=== PATIENT | female | born 1985 | race Caucasian/White ===

== ENCOUNTER 2017-04-05 11:19 | Emergency (ER) | payer BC ==
--- NOTE | 2017-04-05 15:36 | ED CLINICAL REPORT ---
Clinical Report - Physicians/Mid Levels [facility] [address] [place] [address] 04/05/2017 11:23 Patient: MARY COTTER Time Seen: 11:58. Arrived- By private vehicle. Historian- patient. HISTORY OF PRESENT ILLNESS Chief Complaint: VOMITING. This started about 2 days ago and is still present. No recent travel. She has had nausea, vomiting, diarrhea and mild, crampy abdominal pain. The pain is described as located in the lower abdomen. No black stools, bloody stools, constipation, flank pain or history of possible bad food exposure. No known contact with a sick individual. Has not recently been camping or on antibiotics. The illness is described as moderate. Similar symptoms previously: Occasionally. Recent medical care: The patient was seen recently at another facility. ( H and saw her doctor last week after not having a period for a few months and found that she was . Patient denies any vaginal bleeding or discharge. No focused pain in her pelvic or abdominal area. Her last menstrual period was in early December, the patient states she does not believe she is that far along.). REVIEW OF SYSTEMS No fever, muscle aches, difficulty with urination, dark urine or headache. No dizziness, sore throat, cough, chest pain or difficulty breathing. No excessive urination, skin rash, jaundice, back pain or fainting episodes. No blurred vision. All systems otherwise negative, except as recorded above. PAST HISTORY Problems: . Hypertension. Additional Surgeries: section. Cholecystectomy. Gastric bypass. Medications: Labetolol 100 mg BID. Allergies: No Known Drug Allergy. SOCIAL HISTORY Smoker- current status unknown. No alcohol use or drug use. PHYSICAL EXAM Appearance: Alert. Oriented X3. No acute distress. Eyes: Pupils equal, round and reactive to light. Eyes normal inspection. ENT: Nose normal. Neck: Normal inspection. CVS: Normal heart rate and rhythm. Heart sounds normal. Pulses normal. Respiratory: No respiratory distress. Breath sounds normal. Abdomen: Soft. Mild tenderness in the lower abdomen. No guarding or rebound tenderness. Obese. Back: Normal inspection. Skin: Skin warm and dry. Normal skin color. No rash. Normal skin turgor. Extremities: Extremities exhibit normal ROM. No lower extremity edema. Neuro: No motor deficit. No sensory deficit. (patient is grossly oriented, and is appropriate.). LABS, X-RAYS, AND EKG Pelvic Sonogram: Adnexa normal. No free fluid. No intrauterine . no evidence of extrauterine is noted either. Study type: bedside. The study was independently viewed by me, interpreted by the radiologist and contemporaneously by me and discussed with the radiologist. Prior studies were not available for comparison. Laboratory Tests: UA-Culture if indicated: (AWA: 04/05/2017 11:30) ( MsgRcvd 04/05/2017 12:04) Final results Test Result Flag Units (Reference) URINE COLOR YELLOW URINE APPEARANCE SL CLOUDY URINE GLUCOSE NEGATIVE (NEGATIVE) URINE BILIRUBIN NEGATIVE (NEGATIVE) URINE KETONE NEGATIVE (NEGATIVE) URINE SPECIFIC GRAVITY <= 1.005 L (1.010-1.030) URINE PH 6.0 (5.0-8.0) URINE PROTEIN NEGATIVE (NEGATIVE) URINE UROBILINOGEN 2.0 EU/dL (0.2-1.0) The urobilinogen reagent area may react with interferingsubstances known to react with Khloe's reagent such asp-aminosalicylic acid and sulfonamides. Atypical colorreactions may be obtained in the presence of highconcentrations of p-aminobenzoic acid. The absence ofurobilinogen cannot be determined with this test. URINE NITRITE NEGATIVE (NEGATIVE) URINE BLOOD NEGATIVE (NEGATIVE) URINE LEUK ESTERASE NEGATIVE (NEGATIVE) URINE RBC RARE rbc/hpf (0-1) URINE WBC 1-3 wbc/hpf (0-1) URINE EPITHELIAL CELLS 5-10 EPI/hpf (0-5) URINE BACTERIA FEW (1+) (NONE SEEN) URINE COMMENT CULT NOT INDICATED URINE CULTURES ARE SET-UP BASED ON THE FOLLOWING CRITERIA:POSITIVE NITRITEPOSITIVE LEUKOCYTE ESTERASEGREATER THAN 10 WHITE BLOOD CELLSMODERATE (2+) OR GREATER BACTERIA CBC w Diff: (AWA: 04/05/2017 12:15) ( MsgRcvd 04/05/2017 12:25) Final results Test Result Flag Units (Reference) WHITE BLOOD COUNT 4.7 K/uL (4.5-11.5) RED BLOOD COUNT 4.23 M/uL (4.00-5.20) HEMOGLOBIN 11.8 L gm/dL (12.0-16.0) HEMATOCRIT 35.1 L % (36.0-46.0) MEAN CELL VOLUME 83 fL (80-100) MEAN CORPUSCULAR HGB 28 pg (26-34) MEAN CORPUSCULAR HGB CONC 34 g/dL (31-37) RED CELL DISTRIBUTION WIDTH 15.8 H % (11.6-14.8) PLATELET COUNT 206 K/uL (150-400) NEUTROPHIL % 72.5 % (50-75) LYMPH % 17.4 L % (25-40) MONO % 8.4 % (3-14) EOSINOPHIL % 1.5 % (0-4) BASOPHIL % 0.2 % (0-2) CMP: (AWA: 04/05/2017 12:15) ( MsgRcvd 04/05/2017 13:26) Final results Test Result Flag Units (Reference) GLUCOSE 93 mg/dL (70-110) BUN 3 L mg/dL (7-18) CREATININE 0.4 L mg/dL (0.6-1.3) Estimated GFR >60 mL/min Estimated GFR- >60 mL/min Note: Persistent reduction over 3 months in eGFR<60 mL/min/1.73 m2 defines CKD. Patients with eGFR values>=60 mL/min/1.73 m2 may also have CKD if evidence ofpersistent proteinuria. Additional information may be foundat [email or web address]. SODIUM 140 mmol/L (136-145) POTASSIUM 4.4 mmol/L (3.5-5.1) Slightly hemolyzed specimen CHLORIDE 105 mmol/L (98-107) CARBON DIOXIDE 21 mmol/L (21-32) CALCIUM 7.7 L mg/dL (8.5-10.1) TOTAL PROTEIN 6.6 g/dL (6.4-8.2) ALBUMIN 3.4 g/dL (3.3-5.0) BILIRUBIN, TOTAL 0.4 mg/dL (0.0-1.0) ALKALINE PHOSPHATASE 56 U/L (46-116) AST (SGOT) 42 H U/L (15-37) Slightly hemolyzed specimen ALT (SGPT) 47 U/L (12-78) BETA HCG, QUANTITATIVE 2991 mIU/mL REFERENCE RANGE:Adult Males: <2 mIU/mLNon- Females: <6 mIU/mL Females:Approximate Approximate hCGGestational Age Range (mIU/mL) 0-1 week 0-501-2 weeks 40-3002-3 weeks 100-34900-1 weeks 500-23035-4 months 5,000-200,0002-3 months 10,000-100,0002nd trimester 3,000-50,0003rd trimester 1,000-50,000 . Pulse Oximetry: 04/05/2017 11:40 O2 saturation: 100%. (FIO2 - room air). Interpretation: normal. PROGRESS AND PROCEDURES Course of Care: Patient is treated symptomatically with IV fluids and Zofran. Ultrasound showed no findings of in the uterus, but no evidence of ectopic, either. At this point in time, the patient will need to have repeat quantitative hCGs performed, and will likely need another ultrasound in the next several weeks. The patient has been instructed regarding this. No emergent condition identified. Patient and family counseled in person regarding the patient's stable condition, test results, diagnosis and need for follow-up. Concerns were addressed. Old medical records reviewed. Disposition: Discharged. Condition: stable. CLINICAL IMPRESSION First trimester ; positive test in emergency department. Acute viral gastroenteritis. INSTRUCTIONS Do not work for three days. Drink plenty of fluids. (Your labs look good. Your ultrasound does not show a fetus in the uterus at this time. This may be because it is too early in the for the fetus to show up; however it could also mean that the is not developing properly, or is in the wrong place. At this time there is no evidence of an ectopic , but you will need to follow up for repeat labs and a repeat ultrasound within the next week to determine what is going on.). Warnings: Further evaluation is necessary. It is very important to follow up with a physician. GENERAL WARNINGS: Return or contact your physician immediately if your condition worsens or changes unexpectedly, if not improving as expected, or if other problems arise. Your Current Medications: CONTINUE TAKING THE FOLLOWING MEDICATIONS: Labetolol 100 mg BID*. Prescription Medications: Zofran (orally disintegrating tablets) 4 mg: take 1-2 orally every 6 hours as needed for nausea. Dispense twenty (20). No refill. Substitution is permissible. Understanding of the discharge instructions verbalized by patient and family. Follow-up with: Pepe Fernandez MD, Obstetrics/Gynecology, , [facility], [address] [place] [address] Follow up. Call for the next available appointment. Reason for referral: Follow up ER visit for new diagnosis of , no fetus seen on ultrasound. (Electronically signed by Mary Jo Ruiz MD 04/07/2017 4:34)
--- NOTE | 2017-04-05 15:36 | ED CLINICAL REPORT ---
Clinical Report - Physicians/Mid Levels [facility] [address] [place] [address] 04/05/2017 11:23 Patient: MARY COTTER Time Seen: 11:58. Arrived- By private vehicle. Historian- patient. HISTORY OF PRESENT ILLNESS Chief Complaint: VOMITING. This started about 2 days ago and is still present. No recent travel. She has had nausea, vomiting, diarrhea and mild, crampy abdominal pain. The pain is described as located in the lower abdomen. No black stools, bloody stools, constipation, flank pain or history of possible bad food exposure. No known contact with a sick individual. Has not recently been camping or on antibiotics. The illness is described as moderate. Similar symptoms previously: Occasionally. Recent medical care: The patient was seen recently at another facility. ( H and saw her doctor last week after not having a period for a few months and found that she was . Patient denies any vaginal bleeding or discharge. No focused pain in her pelvic or abdominal area. Her last menstrual period was in early December, the patient states she does not believe she is that far along.). REVIEW OF SYSTEMS No fever, muscle aches, difficulty with urination, dark urine or headache. No dizziness, sore throat, cough, chest pain or difficulty breathing. No excessive urination, skin rash, jaundice, back pain or fainting episodes. No blurred vision. All systems otherwise negative, except as recorded above. PAST HISTORY Problems: . Hypertension. Additional Surgeries: section. Cholecystectomy. Gastric bypass. Medications: Labetolol 100 mg BID. Allergies: No Known Drug Allergy. SOCIAL HISTORY Smoker- current status unknown. No alcohol use or drug use. PHYSICAL EXAM Appearance: Alert. Oriented X3. No acute distress. Eyes: Pupils equal, round and reactive to light. Eyes normal inspection. ENT: Nose normal. Neck: Normal inspection. CVS: Normal heart rate and rhythm. Heart sounds normal. Pulses normal. Respiratory: No respiratory distress. Breath sounds normal. Abdomen: Soft. Mild tenderness in the lower abdomen. No guarding or rebound tenderness. Obese. Back: Normal inspection. Skin: Skin warm and dry. Normal skin color. No rash. Normal skin turgor. Extremities: Extremities exhibit normal ROM. No lower extremity edema. Neuro: No motor deficit. No sensory deficit. (patient is grossly oriented, and is appropriate.). LABS, X-RAYS, AND EKG Pelvic Sonogram: Adnexa normal. No free fluid. No intrauterine . no evidence of extrauterine is noted either. Study type: bedside. The study was independently viewed by me, interpreted by the radiologist and contemporaneously by me and discussed with the radiologist. Prior studies were not available for comparison. Laboratory Tests: UA-Culture if indicated: (WAA: 04/05/2017 11:30) ( MsgRcvd 04/05/2017 12:04) Final results Test Result Flag Units (Reference) URINE COLOR YELLOW URINE APPEARANCE SL CLOUDY URINE GLUCOSE NEGATIVE (NEGATIVE) URINE BILIRUBIN NEGATIVE (NEGATIVE) URINE KETONE NEGATIVE (NEGATIVE) URINE SPECIFIC GRAVITY <= 1.005 L (1.010-1.030) URINE PH 6.0 (5.0-8.0) URINE PROTEIN NEGATIVE (NEGATIVE) URINE UROBILINOGEN 2.0 EU/dL (0.2-1.0) The urobilinogen reagent area may react with interferingsubstances known to react with Khloe's reagent such asp-aminosalicylic acid and sulfonamides. Atypical colorreactions may be obtained in the presence of highconcentrations of p-aminobenzoic acid. The absence ofurobilinogen cannot be determined with this test. URINE NITRITE NEGATIVE (NEGATIVE) URINE BLOOD NEGATIVE (NEGATIVE) URINE LEUK ESTERASE NEGATIVE (NEGATIVE) URINE RBC RARE rbc/hpf (0-1) URINE WBC 1-3 wbc/hpf (0-1) URINE EPITHELIAL CELLS 5-10 EPI/hpf (0-5) URINE BACTERIA FEW (1+) (NONE SEEN) URINE COMMENT CULT NOT INDICATED URINE CULTURES ARE SET-UP BASED ON THE FOLLOWING CRITERIA:POSITIVE NITRITEPOSITIVE LEUKOCYTE ESTERASEGREATER THAN 10 WHITE BLOOD CELLSMODERATE (2+) OR GREATER BACTERIA CBC w Diff: (AWA: 04/05/2017 12:15) ( MsgRcvd 04/05/2017 12:25) Final results Test Result Flag Units (Reference) WHITE BLOOD COUNT 4.7 K/uL (4.5-11.5) RED BLOOD COUNT 4.23 M/uL (4.00-5.20) HEMOGLOBIN 11.8 L gm/dL (12.0-16.0) HEMATOCRIT 35.1 L % (36.0-46.0) MEAN CELL VOLUME 83 fL (80-100) MEAN CORPUSCULAR HGB 28 pg (26-34) MEAN CORPUSCULAR HGB CONC 34 g/dL (31-37) RED CELL DISTRIBUTION WIDTH 15.8 H % (11.6-14.8) PLATELET COUNT 206 K/uL (150-400) NEUTROPHIL % 72.5 % (50-75) LYMPH % 17.4 L % (25-40) MONO % 8.4 % (3-14) EOSINOPHIL % 1.5 % (0-4) BASOPHIL % 0.2 % (0-2) CMP: (AWA: 04/05/2017 12:15) ( MsgRcvd 04/05/2017 13:26) Final results Test Result Flag Units (Reference) GLUCOSE 93 mg/dL (70-110) BUN 3 L mg/dL (7-18) CREATININE 0.4 L mg/dL (0.6-1.3) Estimated GFR >60 mL/min Estimated GFR- >60 mL/min Note: Persistent reduction over 3 months in eGFR<60 mL/min/1.73 m2 defines CKD. Patients with eGFR values>=60 mL/min/1.73 m2 may also have CKD if evidence ofpersistent proteinuria. Additional information may be foundat [email or web address]. SODIUM 140 mmol/L (136-145) POTASSIUM 4.4 mmol/L (3.5-5.1) Slightly hemolyzed specimen CHLORIDE 105 mmol/L (98-107) CARBON DIOXIDE 21 mmol/L (21-32) CALCIUM 7.7 L mg/dL (8.5-10.1) TOTAL PROTEIN 6.6 g/dL (6.4-8.2) ALBUMIN 3.4 g/dL (3.3-5.0) BILIRUBIN, TOTAL 0.4 mg/dL (0.0-1.0) ALKALINE PHOSPHATASE 56 U/L (46-116) AST (SGOT) 42 H U/L (15-37) Slightly hemolyzed specimen ALT (SGPT) 47 U/L (12-78) BETA HCG, QUANTITATIVE 2991 mIU/mL REFERENCE RANGE:Adult Males: <2 mIU/mLNon- Females: <6 mIU/mL Females:Approximate Approximate hCGGestational Age Range (mIU/mL) 0-1 week 0-501-2 weeks 40-3002-3 weeks 100-64434-5 weeks 500-53131-9 months 5,000-200,0002-3 months 10,000-100,0002nd trimester 3,000-50,0003rd trimester 1,000-50,000 . Pulse Oximetry: 04/05/2017 11:40 O2 saturation: 100%. (FIO2 - room air). Interpretation: normal. PROGRESS AND PROCEDURES Course of Care: Patient is treated symptomatically with IV fluids and Zofran. Ultrasound showed no findings of in the uterus, but no evidence of ectopic, either. At this point in time, the patient will need to have repeat quantitative hCGs performed, and will likely need another ultrasound in the next several weeks. The patient has been instructed regarding this. No emergent condition identified. Patient and family counseled in person regarding the patient's stable condition, test results, diagnosis and need for follow-up. Concerns were addressed. Old medical records reviewed. Disposition: Discharged. Condition: stable. CLINICAL IMPRESSION First trimester ; positive test in emergency department. Acute viral gastroenteritis. INSTRUCTIONS Do not work for three days. Drink plenty of fluids. (Your labs look good. Your ultrasound does not show a fetus in the uterus at this time. This may be because it is too early in the for the fetus to show up; however it could also mean that the is not developing properly, or is in the wrong place. At this time there is no evidence of an ectopic , but you will need to follow up for repeat labs and a repeat ultrasound within the next week to determine what is going on.). Warnings: Further evaluation is necessary. It is very important to follow up with a physician. GENERAL WARNINGS: Return or contact your physician immediately if your condition worsens or changes unexpectedly, if not improving as expected, or if other problems arise. Your Current Medications: CONTINUE TAKING THE FOLLOWING MEDICATIONS: Labetolol 100 mg BID*. Prescription Medications: Zofran (orally disintegrating tablets) 4 mg: take 1-2 orally every 6 hours as needed for nausea. Dispense twenty (20). No refill. Substitution is permissible. Understanding of the discharge instructions verbalized by patient and family. Follow-up with: Pepe Fernandez MD, Obstetrics/Gynecology, , [facility], [address] [place] [address] Follow up. Call for the next available appointment. Reason for referral: Follow up ER visit for new diagnosis of , no fetus seen on ultrasound. (Electronically signed by Mary Jo Ruiz MD 04/07/2017 4:34)
--- NOTE | 2017-04-05 15:37 | ED ORDER SUMMARY ---
..... Patient: MARY COTTER OrderSheet [facility] VisitID: [id number] [place] [address] 32y, F Registration Date/Time: 04/05/2017 ORDER SHEET Weight: 117.9 kg (stated) Allergies: No Known Drug Allergy GENERAL ORDERS: UA-Culture if indicated Urgent (11:48 04/05/2017 SStone R.N. per protocol) (Ack 12:00 Salomon) (12:46 JBoardley R.N.) CBC w Diff Urgent (11:48 04/05/2017 SStone R.N. per protocol) (Ack 12:00 Salomon) (12:46 JBoardley R.N.) CMP Urgent (11:48 04/05/2017 SStone R.N. per protocol) (Ack 12:00 Salomon) (12:46 JBoardley R.N.) Serum Quantitative Urgent (12:00 04/05/2017 Marisabel CARRILLO) (Ack 12:08 Salomon) (12:46 JBoardley R.N.) US OB 1st Trimester w Transvag () Urgent (13:45 04/05/2017 Marisabel CARRILLO) (Ack 13:48 Salomon) (15:29 IJurca ER Tech1) MEDICATION ORDERS: IV FLUIDS: IV Saline Lock (11:48 04/05/2017 SStone R.N. per protocol) (Ack 12:14 SStone R.N.) (12:47 SStone R.N.) IV NS : initial bolus 1000 mL (1000 mL/hr), then none - (NOW) (12:00 04/05/2017 Marisabel CARRILLO) (Ack 12:14 SStone R.N.) (12:47 SStone R.N.) Zofran IV 8 mg (NOW) (12:00 04/05/2017 Marisabel CARRILLO) (Ack 12:14 SStone R.N.) (12:48 SStone R.N.) Zofran IV 8 mg (NOW) (15:57 04/05/2017 Marisabel CARRILLO) ORDER SHEET NOTES: [Electronically signed by Lisa Marion R.N. (11:50 04/06/2017)] [Electronically signed by Mary Jo Ruiz MD (04:34 04/07/2017)] [Electronically locked/signed by Lisa Marion R.N. (11:50 04/06/2017)]
--- NOTE | 2017-04-05 15:37 | ED ORDER SUMMARY ---
..... Patient: MARY COTTER OrderSheet [facility] VisitID: [id number] [place] [address] 32y, F Registration Date/Time: 04/05/2017 ORDER SHEET Weight: 117.9 kg (stated) Allergies: No Known Drug Allergy GENERAL ORDERS: UA-Culture if indicated Urgent (11:48 04/05/2017 SStone R.N. per protocol) (Ack 12:00 Salomon) (12:46 JBoardley R.N.) CBC w Diff Urgent (11:48 04/05/2017 SStone R.N. per protocol) (Ack 12:00 Salomon) (12:46 JBoardley R.N.) CMP Urgent (11:48 04/05/2017 SStone R.N. per protocol) (Ack 12:00 Salomon) (12:46 JBoardley R.N.) Serum Quantitative Urgent (12:00 04/05/2017 Marisabel CARRILLO) (Ack 12:08 Salomon) (12:46 JBoardley R.N.) US OB 1st Trimester w Transvag () Urgent (13:45 04/05/2017 Marisabel CARRILLO) (Ack 13:48 Salomon) (15:29 IJurca ER Tech1) MEDICATION ORDERS: IV FLUIDS: IV Saline Lock (11:48 04/05/2017 SStone R.N. per protocol) (Ack 12:14 SStone R.N.) (12:47 SStone R.N.) IV NS : initial bolus 1000 mL (1000 mL/hr), then none - (NOW) (12:00 04/05/2017 Marisabel CARRILLO) (Ack 12:14 SStone R.N.) (12:47 SStone R.N.) Zofran IV 8 mg (NOW) (12:00 04/05/2017 Marisabel CARRILLO) (Ack 12:14 SStone R.N.) (12:48 SStone R.N.) Zofran IV 8 mg (NOW) (15:57 04/05/2017 Marisabel CARRILLO) ORDER SHEET NOTES: [Electronically signed by Lisa Marion R.N. (11:50 04/06/2017)] [Electronically signed by Mary Jo Ruiz MD (04:34 04/07/2017)] [Electronically locked/signed by Lisa Marion R.N. (11:50 04/06/2017)]
--- NOTE | 2017-04-05 15:37 | ED NURSING NOTES ---
Clinical Report - Nurses [facility] [place] [address] 04/05/2017 11:23 [id number] TRI[facility] Triage time 11:33. Acuity: LEVEL 3. Chief Complaint: ABDOMINAL PAIN, NAUSEA, VOMITING and DIARRHEA. --11:38 Lisa Marion R.N. 11:50 04/05/17. BP: 145/98. HR: 86. RR: 18. O2 saturation: 100%. Temp: 99 F. Pain level now: 02/08. --16:07 Jeff Silva, ER Tech1. Weight: 117.9 kg stated. Height/Length: 60 inches Per Patient. BMI: 50.8. --11:37 Lisa Marion R.N. Medications lebatolol 100 mg bid. --11:36 Lisa Marion R.N. Allergies No Known Drug Allergy. --11:35 Lisa Marion R.N. History Arrived by private vehicle. Historian: patient. Onset. (2 days ago). She has had nausea, vomiting, diarrhea and abdominal pain. ( chills). PAST MEDICAL HX: Last normal menstrual period- January 06 2017. Currently . SOCIAL HX: Light tobacco smoker (cigarette)- less than 1/2 a pack per day. No alcohol use or drug use. No recent travel. No infectious disease exposure. No known contact with a sick individual. --11:38 Lisa Marion R.N. PROBLEMS: Hypertension. --11:38 Lisa Marion R.N. ADDITIONAL SURGERIES: section. Cholecystectomy. Gastric bypass. --11:38 Lisa Marion R.N. Interventions To treatment room. --11:38 Lisa Marion R.N. PHYSICAL ASSESSMENT Ambulatory to room. ( Assessment by Jeff Silva RN). GENERAL / NEURO / PSYCH: Alert. Oriented X 4. Appears in no acute distress. RESPIRATORY: Respirations not labored. Breath sounds within normal limits. GI / : Abdomen soft and nontender. Bowel sounds within normal limits. SKIN: Skin is warm and dry. --12:28 Jeff Silva, ER Tech1. NURSING PROGRESS NOTES 11:40 04/05/17. BP: 145/98 taken while sitting. HR: 86. RR: 18. O2 saturation: 100% on room air. Temp: 99.0 F. Pain level now: 02/08. --11:41 Jeff Silva, ER Tech1 11:53 04/05/2017 Site #1 started via IV in the right antecubital space with an 20g angiocath, with aseptic technique and good blood return; one attempt. Saline lock flushed with 10 mL saline. --11:53 Christiana Barrios R.N. 12:22 04/05/2017 Started bag #1 1000 mL IV Fluids IV NS (Saline); bolus of 1000 mL wide open via site #1 --12:47 Lisa Marion R.N. 12:22 04/05/2017 Zofran (Ondansetron HCl) IVP 8 mg given over 2 minute(s) via site #1. Allergies verified and confirmed 5 rights. IV patency established. IV site checked: no pain, redness, or swelling. IV flushed thoroughly pre- and post-medication administration. IVP given by RN. --12:48 Lisa Marion R.N. ( Report to annamaria roberts for lunch coverage. awaiting lab results resting quietly, call light in reach, no needs at this time.). --12:48 Lisa Marion R.N. 12:59 04/05/17. --12:59 Vin Greene R.N. 12:59 04/05/17. BP: 116/65. HR: 87. RR: 16. O2 saturation: 100% on room air. --12:59 Vin Greene R.N. 12:59 04/05/17. Patient and family informed about reason for wait and about plan of care. --12:59 Vin Greene R.N. 13:58 04/05/17. BP: 131/76. HR: 92. RR: 18. O2 saturation: 100%. Temp: 98.9 F. Pain level now 03/11. --13:59 Jeff Silva ER Tech1 ( Informed Pt of next step in process; waiting for Ultrasound at this time. Gave Pt warm blanket; Pt resting.). --14:00 Jeff Silva ER Tech1 ( Gave Pt a snack (clovis crackers and cranberry juice) after getting approval from ED MD.). --14:05 Jeff Silva ER Tech1 ( US in room). --14:36 Lisa Marion R.N. 15:31 04/05/17. BP: 111/71. HR: 94. RR: 16. O2 saturation: 100%. Temp: 98.4 F. --15:32 Jeff Silva ER Tech1 ( Updated Pt on status. MD reviewing result of ultrasound. Pt resting with family in room.). --15:32 Jeff Silva ER Tech1. DISPOSITION / DISCHARGE Departure time: 1544. Condition at departure: unchanged and stable. No learning barriers present. Discharge instructions provided and reviewed with the patient. Reviewed medication(s) side effects information. Prescription(s) given to the patient. Reviewed referral to a primary care physician for followup. Reviewed need to stop smoking. The patient was discharged by the physician. She was discharged home and accompanied by validation scientist. She left the Emergency Department ambulatory and via private vehicle. Linoleum Floor Layer driving. --15:48 Jeff Silva ER Tech1 15:45 04/05/17. BP: 111/71. HR: 94. RR: 16. O2 saturation: 100%. Temp: 98.4 F. --15:48 Jeff Silva ER Tech1 15:43 04/05/2017 Site #1 removed upon discharge. Catheter intact. Bandage applied. --15:48 Jeff Silva ER Tech1 Departure time: 1604. ( Updated departure time. - Jeff Moore RN). --16:05 Jeff Silva ER Tech1. Locked/Released at 04/06/2017 11:50 by Lisa Marion R.N.
--- NOTE | 2017-04-05 15:37 | ED NURSING NOTES ---
Clinical Report - Nurses [facility] [place] [address] 04/05/2017 11:23 [id number] TRI[facility] Triage time 11:33. Acuity: LEVEL 3. Chief Complaint: ABDOMINAL PAIN, NAUSEA, VOMITING and DIARRHEA. --11:38 Lisa Marion R.N. 11:50 04/05/17. BP: 145/98. HR: 86. RR: 18. O2 saturation: 100%. Temp: 99 F. Pain level now: 02/08. --16:07 Jeff Silva, ER Tech1. Weight: 117.9 kg stated. Height/Length: 60 inches Per Patient. BMI: 50.8. --11:37 Lisa Marion R.N. Medications lebatolol 100 mg bid. --11:36 Lisa Marion R.N. Allergies No Known Drug Allergy. --11:35 Lisa Marion R.N. History Arrived by private vehicle. Historian: patient. Onset. (2 days ago). She has had nausea, vomiting, diarrhea and abdominal pain. ( chills). PAST MEDICAL HX: Last normal menstrual period- January 06 2017. Currently . SOCIAL HX: Light tobacco smoker (cigarette)- less than 1/2 a pack per day. No alcohol use or drug use. No recent travel. No infectious disease exposure. No known contact with a sick individual. --11:38 Lisa Marion R.N. PROBLEMS: Hypertension. --11:38 Lisa Marion R.N. ADDITIONAL SURGERIES: section. Cholecystectomy. Gastric bypass. --11:38 Lisa Marion R.N. Interventions To treatment room. --11:38 Lisa Marion R.N. PHYSICAL ASSESSMENT Ambulatory to room. ( Assessment by Jeff Silva RN). GENERAL / NEURO / PSYCH: Alert. Oriented X 4. Appears in no acute distress. RESPIRATORY: Respirations not labored. Breath sounds within normal limits. GI / : Abdomen soft and nontender. Bowel sounds within normal limits. SKIN: Skin is warm and dry. --12:28 Jeff Silva, ER Tech1. NURSING PROGRESS NOTES 11:40 04/05/17. BP: 145/98 taken while sitting. HR: 86. RR: 18. O2 saturation: 100% on room air. Temp: 99.0 F. Pain level now: 02/08. --11:41 Jeff Silva, ER Tech1 11:53 04/05/2017 Site #1 started via IV in the right antecubital space with an 20g angiocath, with aseptic technique and good blood return; one attempt. Saline lock flushed with 10 mL saline. --11:53 Christiana Barrios R.N. 12:22 04/05/2017 Started bag #1 1000 mL IV Fluids IV NS (Saline); bolus of 1000 mL wide open via site #1 --12:47 Lisa Marion R.N. 12:22 04/05/2017 Zofran (Ondansetron HCl) IVP 8 mg given over 2 minute(s) via site #1. Allergies verified and confirmed 5 rights. IV patency established. IV site checked: no pain, redness, or swelling. IV flushed thoroughly pre- and post-medication administration. IVP given by RN. --12:48 Lisa Marion R.N. ( Report to annamaria roberts for lunch coverage. awaiting lab results resting quietly, call light in reach, no needs at this time.). --12:48 Lisa Marion R.N. 12:59 04/05/17. --12:59 Vin Greene R.N. 12:59 04/05/17. BP: 116/65. HR: 87. RR: 16. O2 saturation: 100% on room air. --12:59 Vin [place] R.N. 12:59 04/05/17. Patient and family informed about reason for wait and about plan of care. --12:59 Vin Greene R.N. 13:58 04/05/17. BP: 131/76. HR: 92. RR: 18. O2 saturation: 100%. Temp: 98.9 F. Pain level now 03/11. --13:59 Jeff Silva ER Tech1 ( Informed Pt of next step in process; waiting for Ultrasound at this time. Gave Pt warm blanket; Pt resting.). --14:00 Jeff Silva ER Tech1 ( Gave Pt a snack (clovis crackers and cranberry juice) after getting approval from ED MD.). --14:05 Jeff Silva ER Tech1 ( US in room). --14:36 Lisa Marion R.N. 15:31 04/05/17. BP: 111/71. HR: 94. RR: 16. O2 saturation: 100%. Temp: 98.4 F. --15:32 Jeff Silva ER Tech1 ( Updated Pt on status. MD reviewing result of ultrasound. Pt resting with family in room.). --15:32 Jeff Silva ER Tech1. DISPOSITION / DISCHARGE Departure time: 1544. Condition at departure: unchanged and stable. No learning barriers present. Discharge instructions provided and reviewed with the patient. Reviewed medication(s) side effects information. Prescription(s) given to the patient. Reviewed referral to a primary care physician for followup. Reviewed need to stop smoking. The patient was discharged by the physician. She was discharged home and accompanied by pinion sorter. She left the Emergency Department ambulatory and via private vehicle. Brickmason Helper driving. --15:48 Jeff Silva ER Tech1 15:45 04/05/17. BP: 111/71. HR: 94. RR: 16. O2 saturation: 100%. Temp: 98.4 F. --15:48 Jeff Silva ER Tech1 15:43 04/05/2017 Site #1 removed upon discharge. Catheter intact. Bandage applied. --15:48 Jeff Silva ER Tech1 Departure time: 1604. ( Updated departure time. - Jeff Moore RN). --16:05 Jeff Silva ER Tech1. Locked/Released at 04/06/2017 11:50 by Lisa Marion R.N.
--- NOTE | 2017-04-05 16:02 | DIAGNOSTIC IMAGING REPORT ---
PROCEDURE: US OB 1ST TRIMESTER W/TRANSVAG INDICATION: PAIN TECHNIQUE: Vidal scale, color, and spectral Doppler transabdominal and endovaginal sonographic images of the first trimester gravid uterus were obtained. COMPARISON: None. FINDINGS: TRANSABDOMINAL SCANS: Anteverted uterus. TRANSVAGINAL SCANS: The uterus measures 5.4 x 7.4 0.2 cm. Myometrium is unremarkable. Endometrium measures 13 mm with a small amount of fluid within the endometrium. No evidence of a gestational sac. Left ovary measures 4 x 2.7 x 1.9 cm and right ovary 4.2 x 2.6 x 2.1 cm. No adnexal mass or free fluid in the cul-de-sac. IMPRESSION: 1. No evidence of an intrauterine gestational sac, adnexal mass or free fluid. Recommend follow-up Beta hCG and ultrasound
--- NOTE | 2017-04-07 04:34 | ED MAR SUMMARY ---
..... Medication Administration Record [facility] [address] [place] [address] Patient: MARY COTTER Visit ID: [id number] 32y, F Weight: 117.9 kg Height/Length: 60 in BMI: 50.8 ALLERGIES: No Known Drug Allergy Start 12:04/05/2017 Lisa Marion R.N. Medication Administered: IV NS (SALINE), Dose: IV Fluids, Bolus: 1000 mL wide open, Dispensed: 1000 mL bag, Site: #1 right AC. Medication Ordered: IV NS : initial bolus 1000 mL (1000 mL/hr), then none - (NOW). Given 12:04/05/2017 Lisa Marion R.N. Medication Administered: ZOFRAN [IVP] (ONDANSETRON HCL), Dose: 8 mg IVP over 2 minute(s), Site: #1 right AC. Medication Ordered: Zofran IV 8 mg (NOW).
--- NOTE | 2017-04-07 04:34 | ED DISCHARGE INSTRUCTIONS ---
Patient: MARY COTTER General Instructions [facility] VisitID: [id number] [place] [address] 32y, F Registration Date/Time: 04/05/2017 First trimester ; positive test in emergency department. Acute viral gastroenteritis. INSTRUCTIONS Do not work for three days. Drink plenty of fluids. (Your labs look good. Your ultrasound does not show a fetus in the uterus at this time. This may be because it is too early in the for the fetus to show up; however it could also mean that the is not developing properly, or is in the wrong place. At this time there is no evidence of an ectopic , but you will need to follow up for repeat labs and a repeat ultrasound within the next week to determine what is going on.). Warnings: Further evaluation is necessary. It is very important to follow up with a physician. GENERAL WARNINGS: Return or contact your physician immediately if your condition worsens or changes unexpectedly, if not improving as expected, or if other problems arise. Your Current Medications: CONTINUE TAKING THE FOLLOWING MEDICATIONS: Labetolol 100 mg BID*. Prescription Medications: Zofran (orally disintegrating tablets) 4 mg: take 1-2 orally every 6 hours as needed for nausea. Dispense twenty (20). No refill. Substitution is permissible. Understanding of the discharge instructions verbalized by patient and family. Follow-up with: Pepe Fernandez MD, Obstetrics/Gynecology, , [facility], [address] [place] [address] Follow up. Call for the next available appointment. Reason for referral: Follow up ER visit for new diagnosis of , no fetus seen on ultrasound. ADDITIONAL INFORMATION Viral Gastroenteritis (6Yr-Adult) Gastroenteritis is another name for thestomach flu.It is most often caused by a virus that affects the stomach and intestinal tract. Symptoms include stomach cramping and fever, vomiting and/or diarrhea, and can last from 2 to 7 days. The danger from repeated vomiting or diarrhea is dehydration. This is the loss of too much water and minerals from the body. When this occurs, body fluids must be replaced. Antibiotics are not effective for this illness, but simple home treatment will be helpful. Home Care If symptoms are severe, rest at home for the next 24 hours. Avoid tobacco, caffeine, and alcohol use, which can worsen symptoms. Acetaminophen (Tylenol) or ibuprofen (Motrin, Advil) may be usedfor fever or pain unless another medication was prescribed. NOTE: If you have chronic liver or kidney disease or ever had a stomach ulcer or GI bleeding, talk with your doctor before using these medicines. Aspirin should never be used in anyone under 18 years of age who is ill with a fever. It may cause severe liver damage. If medicines for diarrhea or vomiting were prescribed, be sure they are takenonly as directed. If vomiting, drink small amounts of clear fluids (such as water, sports drinks, clear sodas) at frequent intervals to prevent dehydration. Start with 1 to 2 tablespoons every 10 minutes. Once vomiting stops, follow these guidelines: During The First 12 To 24 Hours follow the diet below: Beverages: Sport drinks like Gatorade, soft drinks without caffeine; mihaela channing, mineral water (plain or flavored), decaffeinated tea and coffee. Soups: Clear broth, consomm and bouillon Desserts: Plain gelatin (Jell-O), Popsicles and fruit juice bars. During The Next 24 Hours you may add the following to the above: Hot cereal, plain toast, bread, rolls, crackers Plain noodles, rice, mashed potatoes, chicken noodle or rice soup Unsweetened canned fruit (avoid pineapple), bananas Limit fat intake to less than 15 grams per day by avoiding margarine, butter, oils, mayonnaise, sauces, gravies, fried foods, peanut butter, meat, poultry, and fish. Limit fiber; avoid raw or cooked vegetables, fresh fruits (except bananas), and bran cereals. Limit caffeine and chocolate. Do not use spices or seasonings except salt. During The Next 24 Hours The patient can gradually resume a normal diet as symptoms lessen. Preventing Spread Hand washing with soap and water is the best way to prevent the spread of viruses. Caregivers should wash their hands before andafter touching the sick person. The sick person, as well as everyone in the family,should wash their hands after using the toilet and before meals. Clean the toilet after each use. People with diarrhea should not prepare food for others. If you are preparing your own foods, wash your hands before and after. Follow Up with your doctor as advised. Call your doctor if you are not improving over the next 2 to 3 days. If a stool (diarrhea) sample was taken, you may call in 2 days (or as directed) for the results. Get Prompt Medical Attention if any of the following occur: Increasing abdominal pain Continued vomiting (unable to keep liquids down) Frequent diarrhea (more than 5 times a day) Blood in vomit or stool (black or red color) Dark urine, reduced urine output, or extreme thirst Weakness, dizziness, fainting Drowsiness, confusion, stiff neck, or seizure Fever of 100.4F (38C) oral or higher, not better with fever medication New rash Your exam today shows that you are . During , it is normal to develop tender swollen breasts, frequent urination and mild vaginal discharge. During the first three months, nausea is common. Guidelines For A Healthy : To ensure that your baby is born healthy there are certain things that you can do: When you feel tired, you should REST. This is especially true in the later months of . Your body needs more FLUIDS than you may be used to: You should drink 8-10 glasses of juice, milk or water. Eat well-balanced MEALS at regular intervals to supply your body with enough protein. You can expect a total weight gain of about 30 pounds during the . Do not try to diet or lose weight while you are . Because of the extra nutritional needs during , take one VITAMIN daily. Do not take any other MEDICINE during your (prescribed or [id number]) unless your doctor specifically recommends this. Many drugs can have harmful effects on the growing baby. If NAUSEA or VOMITING become a problem, avoid greasy and fried foods. Eat several smaller meals throughout the day rather than three large meals. If you SMOKE, you must stop. The nicotine you breathe in goes right to the baby. Stay away from ALCOHOL, even in moderate amounts. Daily drinking will harm your baby and can cause permanent brain damage. RECREATIONAL DRUGS are harmful, especially cocaine, crack, and heroin. Marijuana should also be avoided. If you were using recreational drugs or prescribed medicine when you found out that you were , talk to your doctor about possible effects on the fetus. Follow Up: Call to arrange for care. This can be provided by your family doctor, an game operator ( specialist) or a primary care clinic. Get Prompt Medical Attention if any of the following occur: Vaginal bleeding Moderate or severe abdominal or back pain Excessive vomiting, unable to keep any fluids down for six hours Burning with urination Headache, dizziness or rapid weight gain You have been given the following additional information: Gastroenteritis, Viral (6Y-Adult) , New Dx Do not work for three days. (Electronically signed by Mary Jo Ruiz MD 04/07/2017 4:34)
--- NOTE | 2017-04-07 04:34 | ED MED RECONCILIATION SUMMARY ---
Patient: MARY COTTER Medication Reconciliation Report [facility] VisitID: [id number] [address] [place] [address] 32y, F Registration Date/Time: 04/05/2017 Weight: 117.9 kg Height/Length: 60 in. BMI: 50.8 ALLERGIES: No Known Drug Allergy The patient's Home Medications are listed below: CONTINUE TAKING THE FOLLOWING MEDICATIONS: Labetolol 100 mg BID The source(s) of the original Home Medication information: Not obtained. The following Medications were given to the patient in the Emergency Department: IV NS IV Fluids bolus 1000 mL wide open, administered: 04/05/2017 12:22:00 PM Zofran [IVP] IVP 8 mg, administered: 04/05/2017 12:22:00 PM The following Medications were prescribed to the patient: Zofran (orally disintegrating tablets) 4 mg: take 1-2 orally every 6 hours as needed for nausea. Dispense twenty (20). No refill. Substitution is permissible. -- Mary Jo Ruiz MD
--- NOTE | 2017-04-07 04:34 | ED MAR SUMMARY ---
..... Medication Administration Record [facility] [address] [place] [address] Patient: MARY COTTER Visit ID: [id number] 32y, F Weight: 117.9 kg Height/Length: 60 in BMI: 50.8 ALLERGIES: No Known Drug Allergy Start 12:04/05/2017 Lisa Marion R.N. Medication Administered: IV NS (SALINE), Dose: IV Fluids, Bolus: 1000 mL wide open, Dispensed: 1000 mL bag, Site: #1 right AC. Medication Ordered: IV NS : initial bolus 1000 mL (1000 mL/hr), then none - (NOW). Given 12:04/05/2017 Lisa Marion R.N. Medication Administered: ZOFRAN [IVP] (ONDANSETRON HCL), Dose: 8 mg IVP over 2 minute(s), Site: #1 right AC. Medication Ordered: Zofran IV 8 mg (NOW).
--- NOTE | 2017-04-07 04:34 | ED MED RECONCILIATION SUMMARY ---
Patient: MARY COTTER Medication Reconciliation Report [facility] VisitID: [id number] [address] [place] [address] 32y, F Registration Date/Time: 04/05/2017 Weight: 117.9 kg Height/Length: 60 in. BMI: 50.8 ALLERGIES: No Known Drug Allergy The patient's Home Medications are listed below: CONTINUE TAKING THE FOLLOWING MEDICATIONS: Labetolol 100 mg BID The source(s) of the original Home Medication information: Not obtained. The following Medications were given to the patient in the Emergency Department: IV NS IV Fluids bolus 1000 mL wide open, administered: 04/05/2017 12:22:00 PM Zofran [IVP] IVP 8 mg, administered: 04/05/2017 12:22:00 PM The following Medications were prescribed to the patient: Zofran (orally disintegrating tablets) 4 mg: take 1-2 orally every 6 hours as needed for nausea. Dispense twenty (20). No refill. Substitution is permissible. -- Mary Jo Ruiz MD
== END 2017-04-05 15:44 | disposition home or self-care (01) ==
LOC: ED SRH 11:19
DX: O98.811 Other maternal infectious and parasitic diseases complicating pregnancy, first trimester (principal); A08.4 Viral intestinal infection, unspecified; Z3A.01 Less than 8 weeks gestation of pregnancy; I10 Essential (primary) hypertension; Z79.899 Other long term (current) drug therapy
CPT/HCPCS: 90004; 90074; 90100; 90197; 95059

== ENCOUNTER 2017-04-07 11:19 | Outpatient (CLI) | payer BC ==
--- NOTE | 2017-04-07 13:48 | DIAGNOSTIC IMAGING REPORT ---
PROCEDURE: US OB 1ST TRIMESTER W/TRANSVAG INDICATION: Follow-up possible ectopic . Rising hCG level now measuring 5693 (previously 2991, 04/05/2017). TECHNIQUE: Vidal scale, color, and spectral Doppler transabdominal and endovaginal sonographic images of the first trimester gravid uterus were obtained. COMPARISON: Comparison is made to obstetric ultrasound study on 04/05/2017. FINDINGS: TRANSABDOMINAL SCANS: Limited visualization of the uterus (bladder incompletely filled). Kidneys are normal. TRANSVAGINAL SCANS: There has been decrease in endometrial fluid and heterogeneous endometrial thickness which now measures 9 mm (previously 13 mm). Right ovary is of normal size (5.5 cm) with a 2.8 cm corpus luteum cyst. Left ovary is normal (3.6 cm). There is no evidence of free fluid. IMPRESSION: 1. While endometrial thickening in the endometrial root fluid or resolving, there is no evidence of intrauterine gestational sac. In view of the patient's rising hCG level (5693), findings are consistent with an underlying ectopic . 2. There is a 2.8 cm right corpus luteum cyst. 3. Findings discussed with Dr. Cortes Maddox.
== END 2017-04-07 23:00 | disposition home or self-care (01) ==
LOC: LAB SRH 11:19 → US SRH 11:19
DX: N91.2 Amenorrhea, unspecified (principal)
CPT/HCPCS: 90074; 90197

== ENCOUNTER 2017-04-07 14:34 | Emergency (ER) | payer BC ==
[~2017-04-07] VITALS: Ht 167.6 cm; Wt 124.1 kg
--- NOTE | 2017-04-07 15:52 | ED ORDER SUMMARY ---
..... Patient: MARY COTTER OrderSheet [facility] VisitID: [id number] [place] [address] 32y, F Registration Date/Time: 04/07/2017 ORDER SHEET Weight: 124.1 kg (measured) Allergies: None GENERAL ORDERS: Serum Quantitative Urgent (14:41 04/07/2017 EKoroleva P.A.-C) (Ack 14:47 KHoerner) (Cancelled: Other14:48 EKoroleva P.A.-C) CBC w Diff Urgent (14:48 04/07/2017 EKoroleva P.A.-C) (Ack 14:50 KHoerner) (Cancelled: Patient Left15:51 ASchmuck) CMP Urgent (14:48 04/07/2017 EKoroleva P.A.-C) (Ack 14:50 KHoerner) (Cancelled: Patient Left15:51 ASchmuck) MEDICATION ORDERS: - (IV methotrexate (to be dosed by pharmacy for ectopic) Patient is 124 KG, NKDA) (14:52 04/07/2017 EKoroleva P.A.-C) (Cancelled: Other15:22 EKoroleva P.A.-C) - (IM Methotrexate (per pharmacy dosing) pt is 124 kg, treatment of ectopic) (15:22 04/07/2017 EKoroleva P.A.-C) (Ack 15:23 ASchmuck) (Cancelled: Patient Left15:51 ASchmuck) IV FLUIDS: IV Saline Lock (14:48 04/07/2017 EKoroleva P.A.-C) (Cancelled: Unable to Sbgaggl31:51 ASchmuck) ORDER SHEET NOTES: [Electronically signed by Jeri Chopra P.A.-C (16:02 04/07/2017)] [Electronically signed by Ghazala Irving (19:04/07/2017)] [Electronically locked/signed by Ghazala Irving (19:04/07/2017)]
--- NOTE | 2017-04-07 15:52 | ED CLINICAL REPORT ---
Clinical Report - Physicians/Mid Levels [facility] [address] [place] [address] 04/07/2017 14:35 [id number] Time Seen: 14:55 Apr 07 2017. Arrived- By private vehicle. Historian- patient. HISTORY OF PRESENT ILLNESS Chief Complaint: PELVIC PAIN. This started 2 days and still present. The patient has had pelvic pain. Last normal menstrual period- irregular, last menses was December. (Patient presents with pelvic pain over the last 2-3 days, worsening. Denies any vaginal bleeding. Patient reports last menstrual period was late December, patient has irregular menses. Patient was seen previously in the emergency department on the fifth, with an elevated hCG, and ultrasound with no obvious findings of the fetus. Patient also had she was seen today at Dr. Maddox, with an ultrasound and hCG that was rising, and was sent to the emergency department for IV medications. Pt is a now. Denies fevers or back pain.). REVIEW OF SYSTEMS No nausea or skin rash. All systems otherwise negative, except as recorded above. SOCIAL HISTORY Smoker- current status unknown. No alcohol use. ADDITIONAL NOTES The nursing notes have been reviewed. PHYSICAL EXAM Vital Signs: 04/07/2017 14:48 BP: 134/65. HR: 102. RR: 18. O2 saturation: 100%. Temp: 98.9 F. Appearance: Alert. No acute distress. HEENT: Normal external inspection. ENT: Pharynx normal. Neck: Neck supple. No lymphadenopathy. CVS: Tachycardia. Heart sounds normal. Respiratory: No respiratory distress. Breath sounds normal. No rales. Abdomen: Mild tenderness in the suprapubic area. No organomegaly. No mass. No mass present or organomegaly. Skin: Skin warm. Normal skin color. Neuro: Oriented X 3. LABS, X-RAYS, AND EKG Pelvic Sonogram: IMPRESSION: 1. While endometrial thickening in the endometrial root fluid or resolving, there is no evidence of intrauterine gestational sac. In view of the patient's rising hCG level (5693), findings are consistent with an underlying ectopic . 2. There is a 2.8 cm right corpus luteum cyst. 3. Findings discussed with Dr. Cortes Maddox. Electronically Final signed by:Hugo Caballero MD 04/07/2017 1:43:13 PM. PROGRESS AND PROCEDURES Course of Care: hCG level (5693) Positive HCG level/ rising from previous , doubling in 24 hours , seen at OB today, sent to ER for IM administration of meds. Attempted to draw blood for the patient, who in the meantime became frustrated somewhat confused as. Patient did not want any administration of the medication further, after clearing up of why he was taking all bit longer to get the medication, calculation, and safety of handling of the medication for staff. Patient reports she would like to discuss options with her OB, and departed to Dr. Maddox's office. I did warn the patient that potential side effects for ectopic include , bleeding. Patient understands the risks. Patient was able to make her own decisions, did not have a family at bedside. Discussed any other alternatives and options in the emergency department, with RN at bedside. Patient understands the need for care for this and to return if anything worsens. All questions were answered. Patient departed the emergency department. I discussed the case with Dr. Maddox (OB), stating the patient was returning to his office. Discussed case with Dr. Previous records reviewed. Pt with no bleeding. Afebrile. Pt eloped. Patient is stable. Physical exam findings are unchanged. The patient's symptoms are unchanged. CLINICAL IMPRESSION Ectopic . (Electronically signed by Jeri Chopra P.A.-C 04/07/2017 16:02)
--- NOTE | 2017-04-07 15:52 | ED NURSING NOTES ---
Clinical Report - Nurses [facility] [address] [place] [address] 04/07/2017 14:35 [id number] TRI[facility] Triage time 14:41 Apr 07 2017. Acuity: LEVEL 4. Chief Complaint: ABDOMINAL CRAMPS. 14:48 04/07/17. Alert. No acute distress. SEPSIS SCREEN: Sepsis Screen. Negative (no infection suspected/documented). ELVIN COMA SCORE: Elvin Coma Scale: 15- eyes open spontaneously (4); best verbal response- oriented x 4 (5); best motor response- obeys commands (6). --14:48 Ghazala Irving 14:48 04/07/17. BP: 134/65. HR: 102. RR: 18. O2 saturation: 100%. Temp: 98.9 F. Pain level now 9/10. --14:48 Ghazala Irving Acuity: LEVEL 3. 14:48 04/07/17. --14:48 Ghazala Irving. Height/Length: 66 inches Per Patient. --14:46 Ghazala Irving. <<STRICKEN ENTRY-- Weight: 123.3 kg stated. BMI: 43.9. --END STRIKE>> Correction --14:46 Ghazala Irving. Weight: 124.1 kg measured. BMI: 44.2. --14:46 Ghzaala Irving. Medications Labetalol HCl Oral. --14:47 Ghazala Irving. Medication/allergy information source: the patient. --14:48 Ghazala Irving. Allergies None. --14:47 Ghazala Irving. History Arrived by private vehicle. Historian: patient. Accompanied by (Boyfriend and son are coming). Primary physician (Nan). Onset. (Past 2 days). ( Pt reports going to the clinic and then being sent from [facility] for possible ectopic treatment. Pt has been having cramping. Denies bleeding. Denies urinary symptoms.). She has had vomiting. PAST MEDICAL HX: Hypertension. No history of diabetes mellitus. Last normal menstrual period- December. Currently . She has had care in a clinic. Risks and / or problems associated with current . OB history: G 3; P 1; Ab 1. SOCIAL HX: Light tobacco smoker. No alcohol use or drug use. FALL RISK ASSESSMENT: Fall risk assessment completed. No fall risk identified. NUTRITIONAL RISK ASSESSMENT: The nutritional risk assessment revealed no deficiencies. FUNCTIONAL ASSESSMENT: Functional assessment: no impairments noted. LEARNING NEEDS ASSESSMENT: The learning needs assessment revealed no barriers. SKIN INTEGRITY ASSESSMENT: Skin integrity risk assessment completed. No skin integrity risk identified. --14:48 Ghazala Irving No swelling. --14:48 Ghazala Irving. PROBLEMS: Gastroenteritis. Hypertension. --14:47 Ghazala Irving. ADDITIONAL SURGERIES: section. Cholecystectomy. Gastric bypass. --14:47 Ghaazla Irving. Assessment The patient states feels the same. --14:48 Ghazala Irving. Interventions ID band on patient. --14:48 Ghazala Irving. PHYSICAL ASSESSMENT 14:49 04/07/17. Ambulatory to room. GENERAL / NEURO / PSYCH: The patient is awake, alert and in no distress and is oriented. HEENT: Mucous membranes are pink. RESPIRATORY: Respirations not labored. CVS: Capillary refill less than 2 seconds. GI / : Abdomen soft. Abdominal tenderness in the lower abdomen. No vaginal bleeding. EXTREMITIES: No lower extremity edema. SKIN: Skin is warm and dry. --14:49 Ghazala Irvnig. NURSING PROGRESS NOTES 14:40 04/07/2017 One (1) unsuccessful IV access attempt including the right antecubital space. Applied pressure dressing. --15:50 Ghazala Irving 14:49 04/07/17. The plan of care for this patient has been created. Head of bed elevated. Reassurance given. Two patient identifiers checked. Call light placed in reach. Side rails up x 1. Bed placed in lowest position. Brakes of bed on. Patient ready for evaluation- chart flagged and ED physician and PA notified. --14:49 Ghazala Irving 14:55 04/07/2017 Four (4) unsuccessful IV access attempts including the right antecubital space and left antecubital space and forearm. Applied pressure dressing (Attempted by CAROL Arnett). --15:51 Ghazala Irving. DISPOSITION / DISCHARGE 15:38 04/07/17. Departure time: 15:38 Apr 07 2017. The patient left the Emergency Department without completion of treatment; patient was unaccompanied. The patient appears to be alert, oriented x4, coherent and in no acute distress. The patient notified the ED staff prior to leaving the department and stated is leaving the ED due to personal reasons (Patient wishes to talk to OB who had sent her over.). Notified the ED physician and charge nurse of patient departure. Prior to leaving the ED, she was advised to stay for completion of treatment and return if needed. She was informed of the risks of leaving and verbalized understanding of these risks. Patient left without signing form prior to leaving. She left the Emergency Department ambulatory and via private vehicle. ( Patient was informed of risk of leaving including risk of . Pt wishes to speak with OB who sent her to ER. States that she may go to another ED after talking with OB. Pt spoke with primary RN and PA attending to her. Pharmacy and warehouse analyst informed of patient leaving AMA.). --15:50 Ghazala Irving. Locked/Released at 04/07/2017 19:01 by Ghazala Irving,
--- NOTE | 2017-04-07 15:52 | ED ORDER SUMMARY ---
..... Patient: MARY COTTER OrderSheet [facility] VisitID: [id number] [place] [address] 32y, F Registration Date/Time: 04/07/2017 ORDER SHEET Weight: 124.1 kg (measured) Allergies: None GENERAL ORDERS: Serum Quantitative Urgent (14:41 04/07/2017 EKoroleva P.A.-C) (Ack 14:47 KHoerner) (Cancelled: Other14:48 EKoroleva P.A.-C) CBC w Diff Urgent (14:48 04/07/2017 EKoroleva P.A.-C) (Ack 14:50 KHoerner) (Cancelled: Patient Left15:51 ASchmuck) CMP Urgent (14:48 04/07/2017 EKoroleva P.A.-C) (Ack 14:50 KHoerner) (Cancelled: Patient Left15:51 ASchmuck) MEDICATION ORDERS: - (IV methotrexate (to be dosed by pharmacy for ectopic) Patient is 124 KG, NKDA) (14:52 04/07/2017 EKoroleva P.A.-C) (Cancelled: Other15:22 EKoroleva P.A.-C) - (IM Methotrexate (per pharmacy dosing) pt is 124 kg, treatment of ectopic) (15:22 04/07/2017 EKoroleva P.A.-C) (Ack 15:23 ASchmuck) (Cancelled: Patient Left15:51 ASchmuck) IV FLUIDS: IV Saline Lock (14:48 04/07/2017 EKoroleva P.A.-C) (Cancelled: Unable to Ldaqzgc59:51 ASchmuck) ORDER SHEET NOTES: [Electronically signed by eJri Chopra P.A.-C (16:02 04/07/2017)] [Electronically signed by Ghazala Irving (19:04/07/2017)] [Electronically locked/signed by Ghazala Irving (19:04/07/2017)]
--- NOTE | 2017-04-07 19:02 | ED MED RECONCILIATION SUMMARY ---
Patient: MARY COTTER Medication Reconciliation Report [facility] VisitID: [id number] [address] [place] [address] 32y, F Registration Date/Time: 04/07/2017 Weight: 124.1 kg Height/Length: 66 in. BMI: 44.2 ALLERGIES: None The patient's Home Medications are listed below: THE FOLLOWING MEDICATIONS NEED TO BE RECONCILED: Labetalol HCl Oral The source(s) of the original Home Medication information: patient The following Medications were given to the patient in the Emergency Department: None. The following Medications were prescribed to the patient: None.
--- NOTE | 2017-04-07 19:02 | ED MAR SUMMARY ---
..... Medication Administration Record [facility] [address] [place], [place] [id number] Patient: MARY COTTER Visit ID: [id number] 32y, F Weight: 124.1 kg Height/Length: 66 in BMI: 44.2 ALLERGIES: None
--- NOTE | 2017-04-07 19:02 | ED DISCHARGE INSTRUCTIONS ---
Patient: MARY COTTER General Instructions [facility] VisitID: [id number] [address] [place] [address] 32y, F Registration Date/Time: 04/07/2017 Ectopic . (Electronically signed by Jeri Chopra P.A.-C 04/07/2017 16:02)
--- NOTE | 2017-04-07 19:02 | ED DISCHARGE INSTRUCTIONS ---
Patient: MARY COTTER General Instructions [facility] VisitID: [id number] [address] [place] [address] 32y, F Registration Date/Time: 04/07/2017 Ectopic . (Electronically signed by Jeri Chopar P.A.-C 04/07/2017 16:02)
--- NOTE | 2017-04-07 19:02 | ED MAR SUMMARY ---
..... Medication Administration Record [facility] [address] [place], [place] [id number] Patient: MARY COTTER Visit ID: [id number] 32y, F Weight: 124.1 kg Height/Length: 66 in BMI: 44.2 ALLERGIES: None
--- NOTE | 2017-04-07 19:02 | ED MED RECONCILIATION SUMMARY ---
Patient: MARY COTTER Medication Reconciliation Report [facility] VisitID: [id number] [address] [place] [address] 32y, F Registration Date/Time: 04/07/2017 Weight: 124.1 kg Height/Length: 66 in. BMI: 44.2 ALLERGIES: None The patient's Home Medications are listed below: THE FOLLOWING MEDICATIONS NEED TO BE RECONCILED: Labetalol HCl Oral The source(s) of the original Home Medication information: patient The following Medications were given to the patient in the Emergency Department: None. The following Medications were prescribed to the patient: None.
== END 2017-04-07 15:38 | disposition home or self-care (01) ==
LOC: ED SRH 14:34
DX: O00.90 Unspecified ectopic pregnancy without intrauterine pregnancy (principal); Z3A.01 Less than 8 weeks gestation of pregnancy; I10 Essential (primary) hypertension; Z79.899 Other long term (current) drug therapy